=== PATIENT | female | born 2000 | race Caucasian/White ===

== ENCOUNTER 2022-04-28 00:15 | Emergency (ER) | payer BC, MEDICAID ==
[2022-04-28] MEDS ORDERED: Lidocaine 2% 11 ML Jelly Filled Syringe MUCMEM ONE (00:54)
[2022-04-28] MEDS ORDERED: Hydrocortisone Acetate 25 MG Supp RECTAL ONE (01:49)
== END 2022-04-28 02:03 | disposition home or self-care (01) ==
LOC: JD.ED 00:15
DX: K60.0 Acute anal fissure (principal)
CPT/HCPCS: 74018; 99283; A9270

== ENCOUNTER 2022-09-04 20:20 | Emergency (ER) | payer BC ==
[2022-09-04] MEDS ORDERED: Lactated Ringers 1,000 ML IV ONE (20:51)
[2022-09-04] MEDS ORDERED: Sodium Chloride 0.9% 1,000 ML IV ONE (20:51)
[2022-09-04 21:16] LABS: BASOPHILS ABSOLUTE AUTO 0.03 K/mm3 (0.01-0.08); BASOPHILS PERCENT AUTO 0.3 % (0.1-1.2); EOSINOPHILS ABSOLUTE AUTO 0.08 K/mm3 (0.04-0.36); EOSINOPHILS PERCENT AUTO 0.7 (0.7-5.8); HEMATOCRIT 41.8 % (34.1-44.9); IMMATURE GRAN ABSOLUTE AUTO 0.01 K/mm3 (0.00-0.10); IMMATURE GRAN PERCENT AUTO 0.1 % (<=1.0); LYMPHOCYTES ABSOLUTE AUTO 3.67 K/mm3 (1.18-3.74); MEAN CORPUSCULAR HEMOGLOBIN 28.6 pg (25.6-32.2); MEAN CORPUSCULAR HGB CONC 33.5 g/dl (32.2-35.5); MEAN CORPUSCULAR VOLUME 85.5 fl (79.4-94.8); MEAN PLATELET VOLUME 9.3 fl (9.4-12.3); MONOCYTES PERCENT AUTO 7.8 % (4.7-12.5); NEUTROPHILS ABSOLUTE AUTO 6.78 K/mm3 (1.56-6.13); NEUTROPHILS PERCENT AUTO 59.1 % (34.0-71.1); PLATELET COUNT,PLT 293 K/mm3 (182-369); RED BLOOD CELL COUNT 4.89 M/mm3 (3.98-5.22); WHITE BLOOD CELL COUNT,WBC 11.47 K/mm3 (3.98-10.04)
[2022-09-04 22:05] LABS: A/G RATIO 0.9 (1-2); ALBUMIN 3.3 g/dl (3.4-5.0); BILIRUBIN TOTAL 0.3 mg/dL (0.2-1.0); BUN/CREATININE RATIO 8.9 (14-18); CALCIUM 8.7 mg/dL (8.5-10.1); CREATININE 0.9 mg/dL (0.55-1.02); EST CRCL DRUG DOSING (CG) 93.34 mL/min; MAGNESIUM 1.6 mg/dL (1.8-2.4); PROTEIN TOTAL,TP 6.9 g/dl (6.4-8.2)
[2022-09-04] MEDS ORDERED: Magnesium Oxide 400 MG Tab PO ONE (22:12)
== END 2022-09-04 22:18 | disposition home or self-care (01) ==
LOC: JD.ED 20:20
DX: E86.0 Dehydration (principal)
CPT/HCPCS: 36415; 80053; 83735; 85025; 96360; 99284; A9270; J7030; J7120; 99283